=== PATIENT | female | born 1995 | race Hispanic/Latino ===

== ENCOUNTER 2023-03-19 15:24 | Inpatient (IN) | payer MEDICAID, OTHER ==
[2023-03-19] MEDS: Lactated Ringer's 1,000 ML IV SCH ×2 (16:00→17:33)
[2023-03-19 16:33] LABS: Hematocrit 38.4 % (34.9-44.5); Hemoglobin 13.4 g/dL (12.0-15.5); Mean Corpuscular HGB CONC 34.9 g/dL (32.0-36.0); Mean Corpuscular Hemoglobin 31.6 pg (27.0-33.0); Mean Corpuscular Volume 90.6 fl (81.6-98.3); Mean Platelet Volume 11.6 fl (7.4-10.4); RBC Distribution Width 12.7 % (11.5-14.5); Red Blood Cell (RBC) Count 4.24 10x6/uL (3.90-5.03); White Blood Cell (WBC) Count 11.5 10x3/uL (3.5-10.5)
[2023-03-19] MEDS ORDERED: fentaNYL/Ropivacaine Epidural 100 ML ONE (16:45)
[2023-03-19] MEDS ORDERED: hydrALAZINE 20 MG/ML VIAL SLOW IVP PRN (16:46)
[2023-03-19] MEDS ORDERED: Docusate 100 MG CAP PO PRN (16:46)
[2023-03-19] MEDS ORDERED: Ondansetron PF 4 MG/2 ML Vial IVP PRN ×2 (16:46→17:39)
[2023-03-19] MEDS ORDERED: Promethazine HCl 25 MG/ML VIAL IM PRN ×2 (16:46→17:39)
[2023-03-19] MEDS ORDERED: Lidocaine 1% (PF) 30 ML VIAL SC PRN (16:46)
[2023-03-19] MEDS ORDERED: Oxytocin 30 units/NS 500 ML 500 ML IV SCH (17:00)
[2023-03-19 17:26] VITALS: BMI 25.2
[2023-03-19] MEDS ORDERED: Naloxone HCl 0.4 mg/ml Vial IVP PRN ×2 (17:39)
[2023-03-19] MEDS ORDERED: ePHEDrine Sulfate 50 MG/10 ML VIAL SLOW IVP PRN (17:39)
[2023-03-19] MEDS ORDERED: Moisturizing Cream (Eucerin) 113 GM JAR TOP PRN (17:39)
[2023-03-19] MEDS ORDERED: diphenhydrAMINE 50 MG/ML VIAL IVP PRN (17:39)
[2023-03-19] MEDS ORDERED: Lactated Ringer's 500 ML IV PRN (17:39)
[2023-03-19] MEDS ORDERED: Acetaminophen 325 MG TAB PO PRN (17:39)
[2023-03-19] MEDS ORDERED: fentaNYL 2 mcg/Ropivacaine 0.2% Epidural 100 ML CADD EPIDURAL SCH (17:45)
[2023-03-19] MEDS ORDERED: Communication Order-Pharmacy FS SCH (17:45)
[2023-03-19 18:48] LABS: Syphilis Antibody Nonreactive (Nonreactive)
[2023-03-19 18:49] LABS: HBSAg Index 0.19 S/CO (0-0.99); Hep B Surf Ag - L&D Non-Reactive S/CO (NonReactive)
[2023-03-19 19:03] LABS: Platelet Count 130 10x3/uL (150-450)
[2023-03-19] MEDS ORDERED: Misoprostol 200 MCG TAB ONE (22:54)
[2023-03-19] MEDS ORDERED: Methylergonovine 0.2 MG/ML VIAL ONE (22:54)
[2023-03-20] MEDS ORDERED: diphenhydrAMINE 25 MG CAP PO PRN (00:52)
[2023-03-20] MEDS ORDERED: Methylergonovine 0.2 MG/ML VIAL IM PRN (00:52)
[2023-03-20] MEDS ORDERED: Boostrix 0.5 ML (Tdap) VIAL (>/=7 yrs of age) IM ONE (00:52)
[2023-03-20] MEDS ORDERED: Milk Of Magnesia 30 ML UDCUP PO PRN (00:52)
[2023-03-20] MEDS ORDERED: Lanolin Ointment 7 GM TUBE TOP PRN (00:52)
[2023-03-20] MEDS ORDERED: Tranexamic Acid 1,000 MG/10 ML VIAL IVP PRN (00:52)
[2023-03-20] MEDS ORDERED: hydrALAZINE 20 MG/ML VIAL SLOW IVP PRN (00:52)
[2023-03-20] MEDS ORDERED: Carboprost 250 MCG/ML AMP IM PRN (00:52)
[2023-03-20] MEDS ORDERED: Bisacodyl 10 MG SUPP PR PRN (00:52)
[2023-03-20] MEDS ORDERED: Benzocaine-Menthol 82.5 ML CAN TOP PRN (00:52)
[2023-03-20] MEDS ORDERED: Misoprostol 200 MCG TAB PR PRN (00:52)
[2023-03-20] MEDS ORDERED: Preparation H Ointment 28 GM TUBE PR PRN (00:52)
[2023-03-20 04:50] LABS: #Eosinphils 0.1 10x3/uL (0.0-0.5); #Neutrophils 8.2 10x3/uL (1.5-8.4); %Basophils 0.2 % (0.0-2.0); %Eosinophils 0.4 % (0.0-6.0); %Monocytes 8.5 % (0.0-10.0); %Neutrophils 72.5 % (40.0-75.0); Hematocrit 34.4 % (34.9-44.5); Hemoglobin 11.7 g/dL (12.0-15.5); Mean Corpuscular Hemoglobin 31.6 pg (27.0-33.0); Mean Platelet Volume 9.9 fl (7.4-10.4); Platelet Count 164 10x3/uL (150-450); RBC Distribution Width 12.5 % (11.5-14.5); White Blood Cell (WBC) Count 11.2 10x3/uL (3.5-10.5)
[2023-03-20] MEDS: Ibuprofen 800 MG TAB PO SCH ×3 (05:35→21:18)
[2023-03-20] MEDS: Ferrous Sulfate 325 MG TAB PO SCH (08:00)
[2023-03-20] MEDS: Docusate 100 MG CAP PO SCH ×2 (08:19→21:18)
[2023-03-20] MEDS: Prenatal Vitamin 1 TAB PO SCH (08:19)
[2023-03-21] MEDS: Ibuprofen 800 MG TAB PO SCH ×2 (05:53→15:31)
[2023-03-21] MEDS: Ferrous Sulfate 325 MG TAB PO SCH ×3 (07:30→17:00)
[2023-03-21] MEDS: Prenatal Vitamin 1 TAB PO SCH (07:40)
[2023-03-21] MEDS: Docusate 100 MG CAP PO SCH (07:40)
[2023-03-21 08:39] VITALS: BP 101/61; TEMP 97.6
== END 2023-03-21 19:00 | disposition home or self-care (01) | DRG 807 ==
LOC: CSHLD 15:24 → CSHPP 03-20 01:00
PROVIDERS: ADMIT Student in an Organized Health Care Education/Training Program; ATTEND Student in an Organized Health Care Education/Training Program
PROC: 10E0XZZ Delivery of Products of Conception, External Approach (ICD-10-PCS; principal; 2023-03-19)
PROC: 10907ZC Drainage of Amniotic Fluid, Therapeutic from Products of Conception, Via Natural or Artificial Opening (ICD-10-PCS; 2023-03-19)
PROC: 3E033XZ Introduction of Vasopressor into Peripheral Vein, Percutaneous Approach (ICD-10-PCS; 2023-03-19)
DX: O77.0 Labor and delivery complicated by meconium in amniotic fluid (principal); Z37.0 Single live birth; Z3A.39 39 weeks gestation of pregnancy; O72.3 Postpartum coagulation defects; D69.6 Thrombocytopenia, unspecified
CPT/HCPCS: 36415; 51702; 85025; 85027; 86780; 86850; 86900; 86901; 87340; J2590; J7120